=== PATIENT | male | born 1975 | race Caucasian/White ===

== ENCOUNTER 2020-01-20 12:36 | Inpatient (IN) | payer OTHER ==
[2020-01-20] MEDS ORDERED: SODIUM CHLORIDE 0.9% 500 ML 500 ML IV STA (12:55)
[2020-01-20] MEDS ORDERED: VANCOMYCIN IV PER PHARMACY 1 EACH MISC MISCELLANE PRN (12:56)
--- NOTE | 2020-01-20 13:12 | ED ---
General Adult HPI - General Chief complaint: Extremity Problem,Nontraumatic Stated complaint: head/facial swelling Time Seen by Provider: 01/20/20 12:47 Source: patient, RN notes reviewed, old records reviewed Mode of arrival: ambulatory Limitations: no limitations - History of Present Illness Initial comments: 44-year-old male presenting for evaluation of pain swelling and drainage from his forehead and scalp. Patient has had multiple MRSA scalp abscesses in the past. He states over the past several days he's had increased pain and swelling on his forehead and scalp. No fever. He is a type I diabetic. He was placed on oral vancomycin by his primary care physician. he was not placed on any additional antibiotics. the abscess has been freely draining. - Related Data Home Medications Medication Instructions Recorded Confirmed Celecoxib [CeleBREX] 100 mg PO BID 01/20/20 01/20/20 DULoxetine HCL [Cymbalta] 30 mg PO BID 01/20/20 01/20/20 Dicyclomine [Bentyl] 40 mg PO QID 01/20/20 01/20/20 Hyoscyamine Sulfate [Levsin] 0.25 mg PO QID 01/20/20 01/20/20 Insulin Aspart (For Pump) [NovoLOG 0.01 unit SQ-PUMP CONTINUOUS 01/20/20 01/20/20 (For Pump)] L.acidoph,Paracasei, B.lactis 1 cap PO DAILY 01/20/20 01/20/20 [Probiotic] Vancomycin 125 mg PO QID 01/20/20 01/20/20 Allergies Allergy/AdvReac Type Severity Reaction Status Date / Time insulin glargine Allergy Rash/Hives Verified 01/20/20 14:04 [From Lantus U-100 Insulin] Review of Systems ROS Statement: Those systems with pertinent positive or pertinent negative responses have been documented in the HPI. ROS Other: All systems not noted in ROS Statement are negative. Past Medical History Additional Past Medical History / Comment(s): sores cut out with mrsa. History of Any Multi-Drug Resistant Organisms: C-DIFF, MRSA Additional Past Surgical History / Comment(s): nephrotomy tube, stent. Past Psychological History: No Psychological Hx Reported Smoking Status: Never smoker Past Alcohol Use History: None Reported Past Drug Use History: None Reported General Exam Limitations: no limitations General appearance: alert, in no apparent distress Head exam: Present: atraumatic, normocephalic, other (forehead abscess which is draining. Material there is surrounding cellulitis measuring approximately 8 or 9 cm in length, between 2 and 3 cm wide.) Eye exam: Present: normal appearance, PERRL Neck exam: Present: normal inspection. Absent: tenderness, meningismus Respiratory exam: Present: normal lung sounds bilaterally. Absent: respiratory distress, wheezes Cardiovascular Exam: Present: regular rate, normal rhythm GI/Abdominal exam: Present: soft. Absent: distended, tenderness, guarding Extremities exam: Present: normal inspection, normal capillary refill. Absent: pedal edema Neurological exam: Present: alert, oriented X3, CN II-XII intact. Absent: motor sensory deficit Psychiatric exam: Present: normal affect, normal mood Course Vital Signs 01/20/20 12:40 Temperature 98.8 F Pulse Rate 118 H Respiratory 18 Rate Blood Pressure 119/79 O2 Sat by Pulse 98 Oximetry Medical Decision Making - Medical Decision Making 44-year-old male with forehead abscess which is freely draining.ound culture, blood cultures are pending, patient is initiated on IV vancomycin as well as ceftriaxone. IV fluid initiated. As well as pain control. Given that this is on his face and scalp he will be admitted for continuous IV antibiotics. Abscess is draining at this time. Case discussed with Dr. Rodriguez who will admit - Lab Data Result diagrams: 01/20/20 12:59 01/20/20 12:59 Lab Results 01/20/20 01/20/20 01/20/20 Range/Units 12:59 12:59 12:59 WBC 7.9 (3.8-10.6) k/uL RBC 3.83 L (4.30-5.90) m/uL Hgb 12.1 L (13.0-17.5) gm/dL Hct 38.9 L (39.0-53.0) % MCV 101.4 H (80.0-100.0) fL MCH 31.7 (25.0-35.0) pg MCHC 31.2 (31.0-37.0) g/dL RDW 14.5 (11.5-15.5) % Plt Count 349 (150-450) k/uL Neutrophils % 86 % Lymphocytes % 4 % Monocytes % 5 % Eosinophils % 2 % Basophils % 1 % Neutrophils # 6.8 (1.3-7.7) k/uL Lymphocytes # 0.3 L (1.0-4.8) k/uL Monocytes # 0.4 (0-1.0) k/uL Eosinophils # 0.2 (0-0.7) k/uL Basophils # 0.1 (0-0.2) k/uL Hypochromasia Slight Macrocytosis Slight Sodium 136 L (137-145) mmol/L Potassium 4.7 (3.5-5.1) mmol/L Chloride 107 (98-107) mmol/L Carbon Dioxide 24 (22-30) mmol/L Anion Gap 5 mmol/L BUN 19 (9-20) mg/dL Creatinine 1.56 H (0.66-1.25) mg/dL Est GFR (CKD-EPI)AfAm 62 (>60 ml/min/1.73 sqM) Est GFR (CKD-EPI)NonAf 54 (>60 ml/min/1.73 sqM) Glucose 282 H (74-99) mg/dL Plasma Lactic Acid Cristóbal 0.9 (0.7-2.0) mmol/L Calcium 8.7 (8.4-10.2) mg/dL Total Bilirubin 0.4 (0.2-1.3) mg/dL AST 46 (17-59) U/L ALT 27 (4-49) U/L Alkaline Phosphatase 76 (38-126) U/L Total Protein 5.6 L (6.3-8.2) g/dL Albumin 2.9 L (3.5-5.0) g/dL Disposition Clinical Impression: Cellulitis, Facial abscess Disposition: ADMITTED IP TO THIS HOSP Condition: Stable Is patient prescribed a controlled substance at d/c from ED?: No Referrals: Antolin Martin MD [Primary Care Provider] - 1-2 days Decision to Admit Reason: Admit from EC Decision Date: 01/20/20 Decision Time: 14:45
[2020-01-20] MEDS ORDERED: VANCOMYCIN 1,750 MG in SODIUM CHLORIDE 0.9% 500 ML 500 ML IVPB ONE (13:15)
[2020-01-20 13:19] LABS: Basophils # (A) 0.1 k/uL (0-0.2); Basophils % (A) 1 %; Eosinophils # (A) 0.2 k/uL (0-0.7); Eosinophils % (A) 2 %; HCT 38.9 % (39.0-53.0); HGB 12.1 gm/dL (13.0-17.5); Hypochromasia Slight; Lymphocytes # (A) 0.3 k/uL (1.0-4.8); Lymphocytes % (A) 4 %; MCH 31.7 pg (25.0-35.0); MCHC 31.2 g/dL (31.0-37.0); MCV 101.4 fL (80.0-100.0); Macrocytosis Slight; Mean Platelet Volume 7.6; Monocytes # (A) 0.4 k/uL (0-1.0); Monocytes % (A) 5 %; Neutrophils # (A) 6.8 k/uL (1.3-7.7); Neutrophils % (A) 86 %; Platelet Count 349 k/uL (150-450); RBC 3.83 m/uL (4.30-5.90); RDW 14.5 % (11.5-15.5); WBC 7.9 k/uL (3.8-10.6)
[2020-01-20 13:29] LABS: Albumin 2.9 g/dL (3.5-5.0); Calcium 8.7 mg/dL (8.4-10.2); Potassium 4.7 mmol/L (3.5-5.1); Total Bilirubin 0.4 mg/dL (0.2-1.3); Total Protein 5.6 g/dL (6.3-8.2)
[2020-01-20] MEDS ORDERED: HYDROcodone/APAP 5-325MG 1 EACH TAB PO STA (14:00)
[2020-01-20] MEDS ORDERED: HYDROcodone/APAP 5-325MG 1 EACH TAB PO PRN (14:43)
[2020-01-20] MEDS ORDERED: NALOXONE 0.4 MG/ML 1 ML VIAL IV PRN (14:43)
[2020-01-20] MEDS ORDERED: Insulin Aspart (For Pump) 100 UNIT/ML VIAL SQ-PUMP SCH (14:45)
[2020-01-20] MEDS: MORPHINE SULFATE 4 MG/ML SYRINGE IVP PRN ×2 (15:31→19:20)
[2020-01-20] MEDS: SODIUM CHLORIDE 0.9% 1,000 ML IV SCH ×3 (15:32→22:55)
[2020-01-20] MEDS ORDERED: INSULIN ASPART (NovoLOG) 100 UNIT/ML VIAL SQ PRN (17:22)
[2020-01-20] MEDS ORDERED: INSULIN PUMP BASAL RATES 1 EACH MISC MISCELLANE SCH (17:30)
[2020-01-20] MEDS: INSULIN PUMP MEAL BOLUS 1 UNIT MISC MISCELLANE SCH ×2 (17:48→20:41)
[2020-01-20] MEDS: DULoxetine HCL 30 MG CAPSULE.DR PO SCH (19:19)
[2020-01-20] MEDS: HYOSCYAMINE SULFATE 0.125 MG TAB PO SCH (19:19)
[2020-01-20] MEDS: DICYCLOMINE 20 MG TAB PO SCH (19:20)
[2020-01-20 20:12] LABS: Glucose,Whole Blood 179 mg/dL (75-99)
[2020-01-20] MEDS: INSULIN PUMP BASAL RATES 1 EACH MISC MISCELLANE SCH (20:41)
--- NOTE | 2020-01-20 21:49 | P.HPIM ---
History of Present Illness H&P Date: 01/20/20 Chief Complaint: Scalp and facial abscess History of presenting complaint: This is a pleasant 44-year-old patient of Dr. gutierrez from [place]. Chronic stable medical conditions include type I diabetic. Patient has insulin pump. Rather brittle., Anxiety for which is on Cymbalta, J-pouch polyps for 2 takes Celebrex, abdominal cramping. Patient through the summer's been having episodes of facial abscess suspect in the facial head area including the maldonado. Had gone to see his family doctor. Several of these were I&D. Received antibiotics and local treatment which improved. Also a lot of having C. diff that was treated with oral vancomycin. Again patient started off with a lesion on the left cheek and the scalp area. Progress to get worse. It is draining. Denies any fever and chills. Appetite is fair. 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 diff, hemorrhage and adenoma polyposis, large colon removed due to polyps. 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 Employed Physical examination: VITAL SIGNS: 98.8, 118, 18, 119/79, 98% room air GENERAL: BMI 26.6, sitting up, not in distress. EYES: Pupils equal. Conjunctiva normal. HEENT: Patient has an area of large boil on the forehead at the hairline which is draining, 1 well-healing on the left face and the jawline l. NECK: JVD not raised; masses not palpable. HEART: First and second heart sounds are normal; no edema. LUNGS: Respiratory rate normal; clear to auscultation. ABDOMEN: Soft, nontender, liver spleen not palpable, no masses palpable. PSYCH: Alert and oriented x3; mood and affect normal. NEUROLOGICAL: Cranial nerves grossly intact; no facial asymmetry, power and sensation grossly intact. LYMPHATICS: No lymph nodes palpable in the axilla and neck INVESTIGATIONS, reviewed in the clinical context: White count 7.9 hemoglobin 12.1 platelets 349 potassium 4.7 creatinine 1.56 Assessment: -Recurrent facial abscess boils, especially along the hairline, folliculitis with a prior history of MRSA. We will check patient's immunoglobulins for immunosuppression. -Diabetes mellitus type 1 with insulin pump, brittle -Chronic kidney disease stage III suspect diabetic nephropathy -Hypoalbuminemia likely from chronic kidney disease -Macrocytic anemia Plan: Patient started on vancomycin the ER. Given the renal function will global climate change researcher to daptomycin. Nephrology will be consulted. Check renal function and renal ultrasound. Cultures be sent for Gram stain. Recheck immunoglobin profile. Home medications to be resumed. Lovenox for DVT prophylaxis. Past Medical History Past Medical History: Diabetes Mellitus Additional Past Medical History / Comment(s): scalp/forehead/jawline abscesses since summer 2019; type 1 DM; cdiff 3x since May 2019; gardners syndrome (scar tissue tumors); dilated kidneys; History of Any Multi-Drug Resistant Organisms: C-DIFF, MRSA Date of last positivie culture/infection: 12/12/2019 MDRO Source:: mrsa 12/12/19; cdiff 10/2019 Additional Past Surgical History / Comment(s): percutaneous nephrotomy tube right; ureter stent left; FAP- large colon removed r/t polyps 1996; yearly egd/colonoscopies; multiple sxs to remove desmoid tumors; Past Anesthesia/Blood Transfusion Reactions: No Reported Reaction Past Psychological History: Anxiety, Depression Smoking Status: Never smoker Past Alcohol Use History: None Reported Past Drug Use History: None Reported - Past Family History Sister(s) Additional Family Medical History / Comment(s): FAP Son(s) Additional Family Medical History / Comment(s): FAP Father Additional Family Medical History / Comment(s): FAP, from car accident Medications and Allergies Home Medications Medication Instructions Recorded Confirmed Type Celecoxib [CeleBREX] 100 mg PO BID 01/20/20 01/20/20 History DULoxetine HCL [Cymbalta] 30 mg PO BID 01/20/20 01/20/20 History Dicyclomine [Bentyl] 40 mg PO QID 01/20/20 01/20/20 History Hyoscyamine Sulfate [Levsin] 0.25 mg PO QID 01/20/20 01/20/20 History Insulin Aspart (For Pump) [NovoLOG 0.01 unit SQ-PUMP CONTINUOUS 01/20/20 01/20/20 History (For Pump)] L.acidoph,Paracasei, B.lactis 1 cap PO DAILY 01/20/20 01/20/20 History [Probiotic] Vancomycin 125 mg PO QID 01/20/20 01/20/20 History Allergies Allergy/AdvReac Type Severity Reaction Status Date / Time insulin glargine Allergy Rash/Hives Verified 01/20/20 14:04 [From Lantus U-100 Insulin] Physical Exam Vitals: Vital Signs Temp Pulse Resp BP Pulse Ox 01/20/20 17:38 18 01/20/20 15:21 97 F L 110 H 18 125/85 100 01/20/20 12:40 98.8 F 118 H 18 119/79 98 Intake and Output 01/20/20 01/20/20 01/20/20 06:59 14:59 22:59 Other: Voiding Method Ileal Conduit (Right) Weight 81.647 kg 81.647 kg Results CBC & Chem 7: 01/20/20 12:59 01/20/20 12:59 Labs: Abnormal Lab Results - Last 24 Hours (Table) 01/20/20 01/20/20 01/20/20 Range/Units 12:59 12:59 20:11 RBC 3.83 L (4.30-5.90) m/uL Hgb 12.1 L (13.0-17.5) gm/dL Hct 38.9 L (39.0-53.0) % MCV 101.4 H (80.0-100.0) fL Lymphocytes # 0.3 L (1.0-4.8) k/uL Sodium 136 L (137-145) mmol/L Creatinine 1.56 H (0.66-1.25) mg/dL Glucose 282 H (74-99) mg/dL POC Glucose (mg/dL) 179 H (75-99) mg/dL Total Protein 5.6 L (6.3-8.2) g/dL Albumin 2.9 L (3.5-5.0) g/dL Microbiology - Last 24 Hours (Table) 01/20/20 12:59 Wound Culture - Preliminary Face Thrombosis Risk Factor Assmnt - Choose All That Apply Each Factor Represents 1 point: Age 41-60 years Thrombosis Risk Factor Assessment Total Risk Factor Score: 1 Thrombosis Risk Factor Assessment Level: Low Risk
[2020-01-20] MEDS: ENOXAPARIN 40 MG/0.4 ML SYRINGE SQ SCH (22:56)
[2020-01-21] MEDS ORDERED: VANCOMYCIN 1,500 MG in SODIUM CHLORIDE 0.9% 250 ML IVPB SCH ×2
[2020-01-21] MEDS: MORPHINE SULFATE 4 MG/ML SYRINGE IVP PRN ×5 (01:02→20:37)
[2020-01-21] MEDS: DICYCLOMINE 20 MG TAB PO SCH ×4 (06:06→20:36)
[2020-01-21] MEDS: HYOSCYAMINE SULFATE 0.125 MG TAB PO SCH ×4 (06:06→20:36)
[2020-01-21] MEDS: DULoxetine HCL 30 MG CAPSULE.DR PO SCH ×2 (06:06→20:36)
[2020-01-21] MEDS: SODIUM CHLORIDE 0.9% 1,000 ML IV SCH ×3 (06:12→21:41)
[2020-01-21 06:25] LABS: Appearance,Urine Cloudy (Clear); Bacteria,Urine Many /hpf; Bilirubin,Urine Negative (Negative); Blood,Urine Small (Negative); Budding Yeast,Urine Few /hpf; Color,Urine Light Yellow; Glucose,Urine (UA) Negative (Negative); Ketones,Urine Negative (Negative); Leukocyte Esterase,Urine Large (Negative); Mucus,Urine Rare /hpf; Nitrite,Urine Positive (Negative); PH, Urine 5.5 (5.0-8.0); Protein,Urine Trace (Negative); RBC,Urine 14 /hpf (0-5); Specific Gravity,Urine 1.012 (1.001-1.035); Urobilinogen,Urine <2.0 mg/dL (<2.0); WBC,Urine >182 /hpf (0-5)
[2020-01-21 07:10] LABS: Glucose,Whole Blood 158 mg/dL (75-99)
--- NOTE | 2020-01-21 08:07 | US ---
EXAMINATION TYPE: US kidneys/renal and bladder DATE OF EXAM: 01/21/2020 COMPARISON: NONE CLINICAL HISTORY: assess for CK D. 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 EXAM MEASUREMENTS: Right Kidney: 9.7 x 4.7 x 4.0 cm Left Kidney: 11.1 x 5.5 x 4.2 cm Right Kidney: Lobulated Left Kidney: Lobulated ill defined borders Bladder: Cather in place Bilateral Jets seen: No Lobulated contour to both kidneys more prominent on the left. No hydronephrosis or concerning solid o r cystic renal mass in either kidney. Renal size is within normal limits bilaterally. Ellis catheter in place makes evaluation of bladder suboptimal. IMPRESSION: No hydronephrosis noted bilaterally.
[2020-01-21] MEDS: INSULIN PUMP MEAL BOLUS 1 UNIT MISC MISCELLANE SCH ×4 (08:41→20:39)
[2020-01-21] MEDS: INSULIN PUMP BASAL RATES 1 EACH MISC MISCELLANE SCH ×4 (08:41→20:39)
[2020-01-21] MEDS: ENOXAPARIN 40 MG/0.4 ML SYRINGE SQ SCH (08:42)
[2020-01-21] MEDS: LACTOBACILLUS ACIDOPH & BULGAR 1 EACH PACKET PO SCH (08:42)
[2020-01-21] MEDS: DAPTOmycin 500 MG in SODIUM CHLORIDE 0.9% 50 ML IVPB SCH (08:42)
[2020-01-21] MEDS ORDERED: MELOXICAM 7.5 MG TAB PO SCH (09:00)
--- NOTE | 2020-01-21 10:37 | P.NPCON ---
History of Present Illness - Reason for Consult chronic renal failure - History of Present Illness Reason for consultation: Chronic kidney disease History of present illness: Patient is a 44-year-old male seen in renal consultation for chronic kidney disease. Patient states he has chronic kidney disease stage III with baseline creatinine near 1.5. Patient has history of FAP and is status post colectomy as well as large intestine resection. Patient states he developed desmoid tumor and underwent resection off one of them. The other one could not be removed. He developed obstructive uropathy and had bilateral nephrostomy tubes placed for about one year in 2004. He subsequently had the nephrostomy tubes removed and then had bilateral stents placed. Patient again developed obstruction from the desmoid tumor and underwent placement of nephrostomy tubes and subsequently left ureteral stent. Patient states the right ureteral stent could not be placed. He follows with urology and nephrology out of [facility]. Patient presented to the hospital with wound on his forehead. Patient states he first noticed it about 2 weeks ago and also had it drained at his primary care physici an's office. He was taking oral vancomycin. However he states that he noticed worsening swelling around his forehead and came to the hospital. Patient states he's had other skin lesions in the past. Cultures positive for MRSA. Patient is not able to tolerate antibiotics as he's had multiple episodes of C. diff. He does admit to taking Tylenol as well as Aleve for the last few days. No chest pain or shortness of breath. No edema. No vomiting or diarrhea. Oral intake is good. No family history of renal disease. He does have long-standing history of diabetes mellitus. Vital signs are stable. General: The patient appeared well nourished and normally developed. HEENT: Head exam is unremarkable. Neck is without jugular venous distension. LUNGS: Breath sounds decreased. HEART: Rate and Rhythm are regular. ABDOMEN: Soft, nontender. EXTREMITITES: No clubbing, cyanosis, or edema. Past Medical History Past Medical History: Diabetes Mellitus Additional Past Medical History / Comment(s): scalp/forehead/jawline abscesses since summer 2019; type 1 DM; cdiff 3x since May 2019; gardners syndrome (scar tissue tumors); dilated kidneys; History of Any Multi-Drug Resistant Organisms: C-DIFF, MRSA Date of last positivie culture/infection: 12/12/2019 MDRO Source:: mrsa 12/12/19; cdiff 10/2019 Additional Past Surgical History / Comment(s): percutaneous nephrotomy tube right; ureter stent left; FAP- large colon removed r/t polyps 1996; yearly egd/colonoscopies; multiple sxs to remove desmoid tumors; Past Anesthesia/Blood Transfusion Reactions: No Reported Reaction Past Psychological History: Anxiety, Depression Smoking Status: Never smoker Past Alcohol Use History: None Reported Past Drug Use History: None Reported - Past Family History Sister(s) Additional Family Medical History / Comment(s): FAP Son(s) Additional Family Medical History / Comment(s): FAP Father Additional Family Medical History / Comment(s): FAP, from car accident Medications and Allergies Home Medications Medication Instructions Recorded Confirmed Type Celecoxib [CeleBREX] 100 mg PO BID 01/20/20 01/20/20 History DULoxetine HCL [Cymbalta] 30 mg PO BID 01/20/20 01/20/20 History Dicyclomine [Bentyl] 40 mg PO QID 01/20/20 01/20/20 History Hyoscyamine Sulfate [Levsin] 0.25 mg PO QID 01/20/20 01/20/20 History Insulin Aspart (For Pump) [NovoLOG 0.01 unit SQ-PUMP CONTINUOUS 01/20/20 01/20/20 History (For Pump)] L.acidoph,Paracasei, B.lactis 1 cap PO DAILY 01/20/20 01/20/20 History [Probiotic] Vancomycin 125 mg PO QID 01/20/20 01/20/20 History Allergies Allergy/AdvReac Type Severity Reaction Status Date / Time insulin glargine Allergy Rash/Hives Verified 01/20/20 14:04 [From Lantus U-100 Insulin] Physical Exam Vitals: Vital Signs Temp Pulse Pulse Resp BP BP Pulse Ox 01/21/20 05:00 97.8 F 81 16 111/71 98 01/20/20 21:00 98.0 F 97 16 118/74 99 01/20/20 17:38 18 01/20/20 15:21 97 F L 110 H 18 125/85 100 01/20/20 12:40 98.8 F 118 H 18 119/79 98 Intake and Output 01/20/20 01/21/20 01/21/20 22:59 06:59 14:59 Intake Total 1110 590 Balance 1110 590 Intake: Intake, IV Titration 520 Amount Sodium Chloride 0.9% 1, 520 000 ml @ 130 mls/hr IV . Q7H42M [facility] Rx#:[id number] Oral 590 590 Other: Voiding Method Ileal Conduit (Right) Ileal Conduit (Right) # Voids 1 2 Weight 81.647 kg Results - Lab Results Most recent lab results Calcium 8.7 mg/dL (8.4-10.2) 01/20/20 12:59 01/20/20 12:59 01/20/20 12:59 Assessment and Plan Plan: Assessment: 1. Chronic kidney disease stage III secondary to obstructive uropathy. Baseline creatinine near 1.5 at the patient. He follows at [facility]. 2. 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 Ultrasound this admission revealed no evidence of hydronephrosis. 3. Diabetes mellitus. 4. MRSA wound on the forehead maintained on antibiotics. 5. History of recurrent C. diff. No diarrhea at this time. 6. Pyuria. Asymptomatic. He did receive a dose of Rocephin on admission. 7. History of FAP status post colectomy. Plan: Decrease normal saline to 50 mL an hour. Can likely Hep-Lock tomorrow. Avoid nephrotoxins. I advised the patient to avoid nonsteroidals on a regular basis. Check urine culture. He will need to follow up with urology as well as nephrology at [facility] upon discharge. Thank you for the consultation. I will continue to follow the patient with you during his hospital stay.
[2020-01-21 10:59] LABS: African American GFR (CKD) 78 (>60 ml/min/1.73 sqM); Anion Gap 2 mmol/L; Blood Urea Nitrogen 15 mg/dL (9-20); Calcium 7.5 mg/dL (8.4-10.2); Carbon Dioxide 22 mmol/L (22-30); Chloride 112 mmol/L (98-107); Glucose 150 mg/dL (74-99); Non-African American GFR(CKD) 67 (>60 ml/min/1.73 sqM); Sodium 136 mmol/L (137-145)
[2020-01-21 11:10] LABS: Glucose,Whole Blood 68 mg/dL (75-99)
[2020-01-21] MEDS ORDERED: INSPUCOR MISCELLANE PRN (11:25)
[2020-01-21] MEDS ORDERED: INSULIN PUMP TARGET GLUCOSE 1 EACH MISC MISCELLANE PRN (11:25)
[2020-01-21] MEDS ORDERED: INSULIN PUMP ACTIVE INSULIN 1 EACH MISC MISCELLANE PRN (11:25)
[2020-01-21 11:28] LABS: Glucose,Whole Blood 59 mg/dL (75-99)
[2020-01-21 12:00] LABS: Glucose,Whole Blood 119 mg/dL (75-99)
[2020-01-21 13:27] LABS: Hemoglobin A1C 6.3 % (4.0-6.0)
[2020-01-21 17:16] LABS: Glucose,Whole Blood 201 mg/dL (75-99)
[2020-01-21 20:24] LABS: Glucose,Whole Blood 161 mg/dL (75-99)
--- NOTE | 2020-01-21 20:34 | P.PN ---
Progress Note - Text Progress Note Date: 01/21/20 Chief Complaint: Scalp and facial abscess History of presenting complaint: This is a pleasant 44-year-old patient of Dr. gutierrez from [place]. Chronic stable medical conditions include type I diabetic. Patient has insulin pump. Rather brittle., Anxiety for which is on Cymbalta, J-pouch polyps for 2 takes Celebrex, abdominal cramping. Patient through the summer's been having episodes of facial abscess suspect in the facial head area including the maldonado. Had gone to see his family doctor. Several of these were I&D. Received antibiotics and local treatment which improved. Also a lot of having C. diff that was treated with oral vancomycin. Again patient started off with a lesion on the left cheek and the scalp area. Progress to get worse. It is draining. Denies any fever and chills. Appetite is fair. Today-sitting up. No fever no chills. The abscess on the phone it is draining a bit. Cultures are coming back showing MRSA. Appetite fair Review of systems: Was done for constitutional, cardiovascular, GI, pulmonary. relevant finding as above Active Medications Hydrocodone Bitart/Acetaminophen (Hydrocodone/Apap 5-325mg 1 Each Tab) 1 each PO Q6HR PRN PRN Reason: Moderate Pain Dicyclomine HCl (Dicyclomine 20 Mg Tab) 40 mg PO ACHS [facility] Last Admin: 01/21/20 17:23 Dose: 40 mg Documented by: Duloxetine HCl (Duloxetine Hcl 30 Mg Capsule.) 30 mg PO BID [facility] Last Admin: 01/21/20 06:06 Dose: 30 mg Documented by: Enoxaparin Sodium (Enoxaparin 40 Mg/0.4 Ml Syringe) 40 mg SQ DAILY [facility] Last Admin: 01/21/20 08:42 Dose: 40 mg Documented by: Hyoscyamine (Hyoscyamine Sulfate 0.125 Mg Tab) 0.25 mg PO QID [facility] Last Admin: 01/21/20 17:22 Dose: 0.25 mg Documented by: Sodium Chloride (Saline 0.9%) 1,000 mls @ 50 mls/hr IV .Q20H [facility] Last Admin: 01/21/20 06:12 Dose: 130 mls/hr Documented by: Daptomycin 500 mg/ Sodium (Chloride) 50 mls @ 100 mls/hr IVPB Q24H [facility]; Protocol Last Admin: 01/21/20 08:42 Dose: 100 mls/hr Documented by: Insulin Aspart (Insulin Aspart (Novolog) 100 Unit/Ml Vial) 0 unit SQ DAILY PRN PRN Reason: Insulin Pump Replacement Lactobacillus Acidoph/Bulgaricus (Lactobacillus Acidoph & Bulgar 1 Each Packet) 1 each PO DAILY [facility] Last Admin: 01/21/20 08:42 Dose: 1 each Documented by: Miscellaneous Information (Insulin Pump Meal Bolus 1 Unit Misc) 0 unit MISCELLANE ACHS [facility]; Protocol Last Admin: 01/21/20 17:24 Dose: 1.5 unit Documented by: Miscellaneous Information (Insulin Pump Basal Rates 1 Each Misc) 1.5 each MISCELLANE ACHS [facility]; Protocol Last Admin: 01/21/20 17:24 Dose: 1.5 each Documented by: Miscellaneous Information (Insulin Pump Correction Bolus 1 Unit Misc) 0 unit MISCELLANE ACHS PRN; Protocol PRN Reason: Blood Sugar - High Miscellaneous Information (Insulin Pump Active Insulin 1 Each Misc) 1 each MISCELLANE ACHS PRN; Protocol PRN Reason: Blood Sugar - High Miscellaneous Information (Insulin Pump Target Glucose 1 Each Misc) 1 each MISCELLANE ACHS PRN; Protocol PRN Reason: Blood Sugar - High Morphine Sulfate (Morphine Sulfate 4 Mg/Ml Syringe) 4 mg IVP Q3HR PRN PRN Reason: Pain Last Admin: 01/21/20 17:28 Dose: 4 mg Documented by: Naloxone HCl (Naloxone 0.4 Mg/Ml 1 Ml Vial) 0.2 mg IV Q2M PRN PRN Reason: Opioid Reversal Physical examination: VITAL SIGNS: 97.6, 93, 17, 101 8/69, 98% room air GENERAL: sitting up, comfortable EYES: Pupils equal. Conjunctiva normal. HEENT: Patient has an area of large boil on the forehead at the hairline which is draining, 1 well-healing on the left face and the jawline l. NECK: JVD not raised; masses not palpable. HEART: First and second heart sounds are normal; no edema. LUNGS: Respiratory rate normal; clear to auscultation. ABDOMEN: Soft, nontender, liver spleen not palpable, no masses palpable. PSYCH: Alert and oriented x3; mood and affect normal. INVESTIGATIONS, reviewed in the clinical context: Accu-Cheks 68, 59, 119 creatinine 1.3 White count 7.9 hemoglobin 12.1 platelets 349 potassium 4.7 creatinine 1.56 Assessment: -Recurrent facial abscess boils, especially along the hairline, folliculitis with a prior history of MRSA. We will check patient's immunoglobulins for immunosuppression. Prelim cultures coming back showing MRSA. -Diabetes mellitus type 1 with insulin pump, brittle, uncontrolled with hypoglycemia -Chronic kidney disease stage III suspect diabetic nephropathy -Hypoalbuminemia likely from chronic kidney disease -Macrocytic anemia Plan: Spoke to the skilled nursing case manager about a prescription for Zyvox. Wishes co-pay and not having any prescription coverage amount is coming to $3000. We will try a prescription of doxycycline. Consult surgery for possible I&D on the forehead abscess. On IV daptomycin
[2020-01-22] MEDS: MORPHINE SULFATE 4 MG/ML SYRINGE IVP PRN ×4 (03:06→22:20)
[2020-01-22] MEDS: SODIUM CHLORIDE 0.9% 1,000 ML IV SCH ×2 (05:11→13:42)
[2020-01-22] MEDS: DICYCLOMINE 20 MG TAB PO SCH ×4 (06:13→21:30)
[2020-01-22] MEDS: DULoxetine HCL 30 MG CAPSULE.DR PO SCH ×2 (06:14→21:30)
[2020-01-22] MEDS: HYOSCYAMINE SULFATE 0.125 MG TAB PO SCH ×4 (06:14→21:30)
[2020-01-22 07:50] LABS: Glucose,Whole Blood 153 mg/dL (75-99)
[2020-01-22] MEDS: INSULIN PUMP BASAL RATES 1 EACH MISC MISCELLANE SCH ×4 (08:24→21:30)
[2020-01-22] MEDS: INSULIN PUMP MEAL BOLUS 1 UNIT MISC MISCELLANE SCH ×4 (08:25→21:30)
[2020-01-22] MEDS: DAPTOmycin 500 MG in SODIUM CHLORIDE 0.9% 50 ML IVPB SCH (08:36)
[2020-01-22] MEDS: LACTOBACILLUS ACIDOPH & BULGAR 1 EACH PACKET PO SCH (08:37)
[2020-01-22] MEDS: ENOXAPARIN 40 MG/0.4 ML SYRINGE SQ SCH (08:37)
[2020-01-22 09:17] LABS: African American GFR (CKD) 85.3 (60.0-200.0); Anion Gap 5.3 mmol/L (4.00-12.00); BUN/Creat Ratio 9.17 Ratio (12.00-20.00); Calcium 7.8 mg/dL (8.7-10.3); Carbon Dioxide 23.7 mmol/L (21.6-31.8); Magnesium 1.8 mg/dL (1.5-2.4); Non-African American GFR(CKD) 73.6 (60.0-200.0); Potassium 4.2 mmol/L (3.5-5.5)
[2020-01-22 11:17] LABS: Glucose,Whole Blood 104 mg/dL (75-99)
--- NOTE | 2020-01-22 12:30 | P.GSCN ---
History of Present Illness Consult date: 01/22/20 History of present illness: CHIEF COMPLAINT: Forehead abscess HISTORY OF PRESENT ILLNESS: This is a 44-year-old male with a known history of multiple scalp abscesses with MRSA, Diabetes mellitus type 1, recurrent C. diff, chronic kidney disease stage III, desmoid tumor and prior Resection. Since May patient has had multiple facial abscesses on his and his scalp as well as in his maldonado. His PCP has been doing I and D's in the office and patient is been started on antibiotics. Patient had a abscess started on his forehead on January 10. He went into his PCP and had I&D completed he was started on oral vancomycin. However, patient's redness and swelling and drainage had increased from that site and therefore he came into the emergency room for further eval uation and treatment. Patient does report some pain and tenderness in the area. He also had facial swelling that is now improving with the IV antibiotics. He denies any fevers chills or sweats. Denies any nausea or vomiting. PAST MEDICAL HISTORY: See list. PAST SURGICAL HISTORY: See list. MEDICATIONS: See list. ALLERGIES: See list. SOCIAL HISTORY: No illicit drug use. REVIEW OF SYSTEMS: CONSTITUTIONAL: Denies fever or chills. HEENT: Denies blurred vision, vision changes, or eye pain. Denies hemoptysis CARDIOVASCULAR: Denies chest pain or pressure. RESPIRATORY: No shortness of breath. GASTROINTESTINAL: See HPI for pertinent findings HEMATOLOGIC: Denies bleeding disorders. GENITOURINARY: Denies any blood in urine or increased urinary frequency. SKIN: Denies pruitis. Denies rash. PHYSICAL EXAM: VITAL SIGNS: Reviewed GENERAL: Well-developed in no acute distress. HEENT: No sclera icterus. Extraocular movements grossly intact. Moist buccal mucosa. Head is atraumatic, normocephalic. No nasal drainage. Patient's for it has a 2 inch abscess. There is erythema around the area and some scabbing. ABDOMEN: Soft. Nondistended. nontender NEUROLOGIC: Alert and oriented. Cranial nerves II through XII grossly intact. LABORATORY DATA: WBC 7.9 A1c 6.3 Culture presumptive MRSA IMAGING: ASSESSMENT: 1. Abscess of the forehead secondary to sebaceous cyst status post bedside debridement by Dr. Hair 2. Prior history of multiple facial abscesses with MRSA requiring outpatient Antibiotic and I&D 3. Diabetes mellitus type 1 PLAN: -Continue antibiotics, daptomycin per medicine -Continue regular diet Thank you for this consultation Physician Media Sales Representative note has been reviewed by physician. Signing provider agrees with the documented findings, assessment, and plan of care. Past Medical History Past Medical History: Diabetes Mellitus Additional Past Medical History / Comment(s): scalp/forehead/jawline abscesses since summer 2019; type 1 DM; cdiff 3x since May 2019; gardners syndrome (scar tissue tumors); dilated kidneys; History of Any Multi-Drug Resistant Organisms: C-DIFF, MRSA Year Discovered:: 12/12/2019 MDRO Source:: mrsa 12/12/19; cdiff 10/2019 Additional Past Surgical History / Comment(s): percutaneous nephrotomy tube right; ureter stent left; FAP- large colon removed r/t polyps 1996; yearly egd/colonoscopies; multiple sxs to remove desmoid tumors; Past Anesthesia/Blood Transfusion Reactions: No Reported Reaction Past Psychological History: Anxiety, Depression Smoking Status: Never smoker Past Alcohol Use History: None Reported Past Drug Use History: None Reported - Past Family History Sister(s) Additional Family Medical History / Comment(s): FAP Son(s) Additional Family Medical History / Comment(s): FAP Father Additional Family Medical History / Comment(s): FAP, from car accident Medications and Allergies Home Medications Medication Instructions Recorded Confirmed Type Celecoxib [CeleBREX] 100 mg PO BID 01/20/20 01/20/20 History DULoxetine HCL [Cymbalta] 30 mg PO BID 01/20/20 01/20/20 History Dicyclomine [Bentyl] 40 mg PO QID 01/20/20 01/20/20 History Hyoscyamine Sulfate [Levsin] 0.25 mg PO QID 01/20/20 01/20/20 History Insulin Aspart (For Pump) [NovoLOG 0.01 unit SQ-PUMP CONTINUOUS 01/20/20 01/20/20 History (For Pump)] L.acidoph,Paracasei, B.lactis 1 cap PO DAILY 01/20/20 01/20/20 History [Probiotic] Vancomycin 125 mg PO QID 01/20/20 01/20/20 History Allergies Allergy/AdvReac Type Severity Reaction Status Date / Time insulin glargine Allergy Rash/Hives Verified 01/20/20 14:04 [From Lantus U-100 Insulin] Surgical - Exam Vital Signs Temp Pulse Resp BP Pulse Ox 98.8 F 118 H 18 119/79 98 01/20/20 12:40 01/20/20 12:40 01/20/20 12:40 01/20/20 12:40 01/20/20 12:40 Results - Labs 01/20/20 12:59 01/22/20 05:39 Abnormal Lab Results - Last 24 Hours (Table) 01/21/20 01/21/20 01/21/20 Range/Units 04:54 17:15 20:23 Chloride (96-109) mmol/L BUN/Creatinine Ratio (12.00-20.00) Ratio Glucose (70-110) mg/dL POC Glucose (mg/dL) 201 H 161 H (75-99) mg/dL Hemoglobin A1c 6.3 H (4.0-6.0) % Calcium (8.7-10.3) mg/dL 01/22/20 01/22/20 01/22/20 Range/Units 05:39 07:48 11:16 Chloride 110 H (96-109) mmol/L BUN/Creatinine Ratio 9.17 L (12.00-20.00) Ratio Glucose 242 H (70-110) mg/dL POC Glucose (mg/dL) 153 H 104 H (75-99) mg/dL Hemoglobin A1c (4.0-6.0) % Calcium 7.8 L (8.7-10.3) mg/dL Microbiology - Last 24 Hours (Table) 01/20/20 12:59 Gram Stain - Final Face Wound Culture - Final Methicillin resist S. aureus 01/21/20 20:00 Urine Culture - Preliminary Urine,Voided 01/20/20 12:59 Blood Culture - Preliminary Blood No Growth after 24 hours Diabetes panel 01/21/20 01/22/20 Range/Units 04:54 05:39 Sodium 139 (135-145) mmol/L Potassium 4.2 (3.5-5.5) mmol/L Chloride 110 H (96-109) mmol/L Carbon Dioxide 23.7 (21.6-31.8) mmol/L BUN 11.0 (9.0-27.0) mg/dL Creatinine 1.2 (0.6-1.5) mg/dL Glucose 242 H (70-110) mg/dL Hemoglobin A1c 6.3 H (4.0-6.0) % Calcium 7.8 L (8.7-10.3) mg/dL Calcium panel 01/22/20 Range/Units 05:39 Calcium 7.8 L (8.7-10.3) mg/dL Pituitary panel 01/22/20 Range/Units 05:39 Sodium 139 (135-145) mmol/L Potassium 4.2 (3.5-5.5) mmol/L Chloride 110 H (96-109) mmol/L Carbon Dioxide 23.7 (21.6-31.8) mmol/L BUN 11.0 (9.0-27.0) mg/dL Creatinine 1.2 (0.6-1.5) mg/dL Glucose 242 H (70-110) mg/dL Calcium 7.8 L (8.7-10.3) mg/dL Adrenal panel 01/22/20 Range/Units 05:39 Sodium 139 (135-145) mmol/L Potassium 4.2 (3.5-5.5) mmol/L Chloride 110 H (96-109) mmol/L Carbon Dioxide 23.7 (21.6-31.8) mmol/L BUN 11.0 (9.0-27.0) mg/dL Creatinine 1.2 (0.6-1.5) mg/dL Glucose 242 H (70-110) mg/dL Calcium 7.8 L (8.7-10.3) mg/dL
--- NOTE | 2020-01-22 13:01 | P.PN ---
Subjective Patient is seen in follow-up for chronic kidney disease. Renal function is at baseline. Good urine output. Currently on IV antibiotics for forehead infection. Hemodynamically stable. No active complaints. Vital signs are stable. General: The patient appeared well nourished and normally developed. HEENT: Forehead lesion noted. No active drainage. Dressing intact. LUNGS: Lungs are clear to auscultation and percussion. Breath sounds decreased. HEART: Rate and Rhythm are regular. First and second heart sounds normal. No murmurs, rubs or gallops. ABDOMEN: Soft, nontender. EXTREMITITES: No clubbing, cyanosis, or edema. Objective - Vital Signs Vital signs: Vital Signs Temp 98.1 F 01/22/20 11:40 Pulse 94 01/22/20 11:40 Resp 17 01/22/20 11:40 BP 121/77 01/22/20 11:40 Pulse Ox 97 01/22/20 11:40 Intake & Output 01/21/20 01/22/20 01/22/20 18:59 06:59 18:59 Intake Total 1680 Balance 1680 Intake: Intake, IV Titration 1680 Amount Sodium Chloride 0.9% 1, 1680 000 ml @ 130 mls/hr IV . Q7H42M [facility] Rx#:[id number] Other: Voiding Method Ileal Conduit (Right) Toilet Toilet Ileal Conduit (Right) Ileal Conduit (Right) # Voids 2 # Bowel Movements 1 - Labs CBC & Chem 7: 01/20/20 12:59 01/22/20 05:39 Labs: Abnormal Lab Results - Last 24 Hours (Table) 01/21/20 01/21/20 01/21/20 Range/Units 04:54 17:15 20:23 Chloride (96-109) mmol/L BUN/Creatinine Ratio (12.00-20.00) Ratio Glucose (70-110) mg/dL POC Glucose (mg/dL) 201 H 161 H (75-99) mg/dL Hemoglobin A1c 6.3 H (4.0-6.0) % Calcium (8.7-10.3) mg/dL 01/22/20 01/22/20 01/22/20 Range/Units 05:39 07:48 11:16 Chloride 110 H (96-109) mmol/L BUN/Creatinine Ratio 9.17 L (12.00-20.00) Ratio Glucose 242 H (70-110) mg/dL POC Glucose (mg/dL) 153 H 104 H (75-99) mg/dL Hemoglobin A1c (4.0-6.0) % Calcium 7.8 L (8.7-10.3) mg/dL Microbiology - Last 24 Hours (Table) 01/20/20 12:59 Gram Stain - Final Face Wound Culture - Final Methicillin resist S. aureus 01/21/20 20:00 Urine Culture - Preliminary Urine,Voided 01/20/20 12:59 Blood Culture - Preliminary Blood No Growth after 24 hours Assessment and Plan Plan: Assessment: 1. Chronic kidney disease stage III secondary to obstructive uropathy. Baseline creatinine near 1.5 per the patient. He follows at [facility]. GFR currently at baseline. 2. 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 Ultrasound this admission revealed no evidence of hydronephrosis. 3. Diabetes mellitus. 4. MRSA wound on the forehead maintained on antibiotics. 5. History of recurrent C. diff. No diarrhea at this time. 6. Pyuria. Asymptomatic. He did receive a dose of Rocephin on admission. 7. History of FAP status post colectomy. Plan: Hep-Lock IV fluids. Patient was advised to avoid nonsteroidals on a regular basis. Follow-up cultures. Add Rocephin 1 g every 24 hours for UTI. Follow up with urology as well as nephrology at [facility] upon discharge.
[2020-01-22 17:15] LABS: Glucose,Whole Blood 147 mg/dL (75-99)
[2020-01-22 20:29] LABS: Glucose,Whole Blood 95 mg/dL (75-99)
--- NOTE | 2020-01-22 21:55 | P.PN ---
Progress Note - Text Progress Note Date: 01/22/20 Chief Complaint: Scalp and facial abscess History of presenting complaint: This is a pleasant 44-year-old patient of Dr. gutierrez from [place]. Chronic stable medical conditions include type I diabetic. Patient has insulin pump. Rather brittle., Anxiety for which is on Cymbalta, J-pouch polyps for 2 takes Celebrex, abdominal cramping. Patient through the summer's been having episodes of facial abscess suspect in the facial head area including the maldonado. Had gone to see his family doctor. Several of these were I&D. Received antibiotics and local treatment which improved. Also a lot of having C. diff that was treated with oral vancomycin. Again patient started off with a lesion on the left cheek and the scalp area. Progress to get worse. It is draining. Denies any fever and chills. Appetite is fair. Today-surgery did squeeze the pus from the abscess before. July still I&D. Patient is having some itching. Eating okay Review of systems: Was done for constitutional, cardiovascular, GI, pulmonary. relevant finding as above Active Medications Hydrocodone Bitart/Acetaminophen (Hydrocodone/Apap 5-325mg 1 Each Tab) 1 each PO Q6HR PRN PRN Reason: Moderate Pain Dicyclomine HCl (Dicyclomine 20 Mg Tab) 40 mg PO ACHS [facility] Last Admin: 01/22/20 21:30 Dose: 40 mg Documented by: Duloxetine HCl (Duloxetine Hcl 30 Mg Capsule.) 30 mg PO BID [facility] Last Admin: 01/22/20 21:30 Dose: 30 mg Documented by: Enoxaparin Sodium (Enoxaparin 40 Mg/0.4 Ml Syringe) 40 mg SQ DAILY [facility] Last Admin: 01/22/20 08:37 Dose: 40 mg Documented by: Hyoscyamine (Hyoscyamine Sulfate 0.125 Mg Tab) 0.25 mg PO QID [facility] Last Admin: 01/22/20 21:30 Dose: 0.25 mg Documented by: Daptomycin 500 mg/ Sodium (Chloride) 50 mls @ 100 mls/hr IVPB Q24H [facility]; Protocol Last Admin: 01/22/20 08:36 Dose: 100 mls/hr Documented by: Ceftriaxone Sodium 1 gm/ (Sodium Chloride) 50 mls @ 100 mls/hr IVPB Q24HR [facility] Last Admin: 01/22/20 14:40 Dose: 100 mls/hr Documented by: Insulin Aspart (Insulin Aspart (Novolog) 100 Unit/Ml Vial) 0 unit SQ DAILY PRN PRN Reason: Insulin Pump Replacement Lactobacillus Acidoph/Bulgaricus (Lactobacillus Acidoph & Bulgar 1 Each Packet) 1 each PO DAILY [facility] Last Admin: 01/22/20 08:37 Dose: 1 each Documented by: Miscellaneous Information (Insulin Pump Meal Bolus 1 Unit Misc) 0 unit MISCELLANE ACHS [facility]; Protocol Last Admin: 01/22/20 21:30 Dose: Not Given Documented by: Miscellaneous Information (Insulin Pump Basal Rates 1 Each Misc) 1.5 each MISCELLANE ACHS [facility]ABETH; Protocol Last Admin: 01/22/20 21:30 Dose: 1.5 each Documented by: Miscellaneous Information (Insulin Pump Correction Bolus 1 Unit Misc) 0 unit MISCELLANE ACHS PRN; Protocol PRN Reason: Blood Sugar - High Miscellaneous Information (Insulin Pump Active Insulin 1 Each Misc) 1 each MISCELLANE ACHS PRN; Protocol PRN Reason: Blood Sugar - High Miscellaneous Information (Insulin Pump Target Glucose 1 Each Misc) 1 each MISCELLANE ACHS PRN; Protocol PRN Reason: Blood Sugar - High Morphine Sulfate (Morphine Sulfate 4 Mg/Ml Syringe) 4 mg IVP Q3HR PRN PRN Reason: Pain Last Admin: 01/22/20 18:02 Dose: 4 mg Documented by: Naloxone HCl (Naloxone 0.4 Mg/Ml 1 Ml Vial) 0.2 mg IV Q2M PRN PRN Reason: Opioid Reversal Physical examination: VITAL SIGNS: Afebrile, 94, 17, 121/77, 97% room air GENERAL: sitting up, comfortable EYES: Pupils equal. Conjunctiva normal. HEENT: Patient has an area of large boil on the forehead at the hairline which is draining, 1 well-healing on the left face and the left jawline NECK: JVD not raised; masses not palpable. HEART: First and second heart sounds are normal; no edema. LUNGS: Respiratory rate normal; clear to auscultation. ABDOMEN: Soft, nontender, liver spleen not palpable, no masses palpable. PSYCH: Alert and oriented x3; mood and affect normal. INVESTIGATIONS, reviewed in the clinical context: Potassium 4.2 creatinine 1.2 Accu-Cheks 68, 59, 119 creatinine 1.3 White count 7.9 hemoglobin 12.1 platelets 349 potassium 4.7 creatinine 1.56 Assessment: -Recurrent facial abscess boils, especially along the hairline, folliculitis with a prior history of MRSA. We will check patient's immunoglobulins for immunosuppression. Prelim cultures coming back showing MRSA. -Diabetes mellitus type 1 with insulin pump, brittle, uncontrolled with hypoglycemia -Chronic kidney disease stage III suspect diabetic nephropathy -Hypoalbuminemia likely from chronic kidney disease -Macrocytic anemia Plan: Patient checked his prescription coverage on good Rx. He found the Zyvox was only $52. Planning for discharge tomorrow depending on ID. At Benadryl at night to prevent itching.
[2020-01-22] MEDS ORDERED: diphenhydrAMINE 25 MG CAP PO SCH (22:00)
[2020-01-23 06:12] VITALS: BP 126/81; PULSE 89; RESP 12; TEMP 97.9
[2020-01-23 07:00] LABS: Glucose,Whole Blood 135 mg/dL (75-99)
[2020-01-23] MEDS: INSULIN PUMP BASAL RATES 1 EACH MISC MISCELLANE SCH (08:00)
[2020-01-23] MEDS: INSULIN PUMP MEAL BOLUS 1 UNIT MISC MISCELLANE SCH (08:00)
[2020-01-23] MEDS: LACTOBACILLUS ACIDOPH & BULGAR 1 EACH PACKET PO SCH (08:59)
[2020-01-23] MEDS: DULoxetine HCL 30 MG CAPSULE.DR PO SCH (08:59)
[2020-01-23] MEDS: DICYCLOMINE 20 MG TAB PO SCH (08:59)
[2020-01-23] MEDS: ENOXAPARIN 40 MG/0.4 ML SYRINGE SQ SCH (09:00)
[2020-01-23] MEDS: HYOSCYAMINE SULFATE 0.125 MG TAB PO SCH (09:01)
[2020-01-23] MEDS: MORPHINE SULFATE 4 MG/ML SYRINGE IVP PRN (09:09)
[2020-01-23] MEDS: DAPTOmycin 500 MG in SODIUM CHLORIDE 0.9% 50 ML IVPB SCH (10:30)
[2020-01-23 11:25] LABS: Glucose,Whole Blood 226 mg/dL (75-99)
[2020-01-23 12:32] LABS: T4/T8 Ratio (CD4:CD8) 0.9 (1.0-3.7)
--- NOTE | 2020-01-23 19:34 | PN ---
PROGRESS NOTE Patient is seen for followup for acute kidney injury on top of chronic kidney disease. He is scheduled for discharge today. The patient follows with paster operator and urologist out of [facility]. His creatinine was down to 1.2 yesterday on 01/22/2020. Patient denies any significant complaints. On examination today, blood pressure 126/81, heart rate 89 per minute. He is afebrile. Examination shows patient is euvolemic with no significant edema, bilateral lower extremities. Abscess on the forehead noted to have minimal bloody drainage. Labs show serum creatinine 1.2 mg/dL, sodium 139, potassium 4.2, magnesium 1.8. ASSESSMENT: 1. Acute kidney injury, currently improved. 2. Chronic kidney disease, stage 3, secondary to obstructive uropathy. Baseline creatinine about 1.5 per patient. He follows at [facility]. 3. History of desmoid tumor with history of nephrostomy tube, currently with a left ureteral stent. No evidence of hydronephrosis on current ultrasound. 4. Methicillin-resistant Staphylococcus aeruginosa wound on the forehead. 5. History of recurrent Clostridium difficile colitis. No current diarrhea noted. PLAN: Patient is advised to follow up as outpatient with his paster operator and urologist. Continue to avoid NSAIDs. MMODL / IJN: [id number] /
--- NOTE | 2020-01-24 07:09 | CDI ---
Documentation Clarification Form Date: 01/24/2020 06:58:00 AM From: Shayla Santoyo Phone: If you have a question about this query, please contact [employer] Resources Project Manager at [phone] between 8am and 5pm. Admit Date: 01/20/2020 02:43:00 PM Patient Name: Rafa Long Visit Number: [id number] Discharge Date: 01/23/2020 12:54:00 PM ATTENTION: The Clinical Documentation Specialists (CDI) and [facility] Coding Staff appreciate your assistance in clarifying documentation. Please respond to the clarification below the line at the bottom and electronically sign. The CDI & [facility] Coding staff will review the response and follow-up if needed. Please note: Queries are made part of the Legal Health Record. If you have any questions, please contact the author of this message via ITS. Dr. Trip Rodriguez Your patient has the documented diagnosis of recurrent facial abscess and boils especially along hairline. Patient also has DM type I, brittle. Please clarify if there is a link between the patients recurrent facial abscess/facial cellulitis and patient's DM type I. A relationship between diagnoses cannot be assumed unless documented as such by the attending physician. In order to capture the severity of condition; please document the relationship, if any, between facial abscess/ cellulitis and DM 1. History/Risk Factors: Recurrent abscesses and boils, cellulitis, folliculitis Clinical Indicators: MRSA, brittle DM 1 Treatment: Vancomycin changed over to Daptomycin Please clarify and document your clinical opinion if patient's recurrent facial abscess, boils, cellulitis is linked to DM type I. MRSA Abscess, boils, cellulitis linked to DM1 MRSA Abscess, boils and cellulitis not linked to DM 1 Other explanation of clinical findings (please specify) Unable to determine (no explanation for clinical findings) MRSA abscess wound linked to diabetes mellitus type 1 MTDD
--- NOTE | 2020-01-25 00:54 | P.DS ---
Providers Date of admission: 01/20/20 14:43 Expected date of discharge: 01/23/20 Attending physician: Trip Rodriguez Consults: 01/20/20 21:52 Consult Physician Routine Consulting Provider: Jacquelyn Dubon Consult Reason/Comments: CK D Do you want consulting provider notified?: Yes 01/21/20 20:31 Consult Physician Routine Consulting Provider: Rex Hair Consult Reason/Comments: I&D for forehead abscess Do you want consulting provider notified?: Yes Primary care physician: [facility] Course: Chief Complaint: Scalp and facial abscess History of presenting complaint: This is a pleasant 44-year-old patient of Dr. martin from [place]. Chronic stable medical conditions include type I diabetic. Patient has insulin pump. Rather brittle., Anxiety for which is on Cymbalta, J-pouch polyps for 2 takes Celebrex, abdominal cramping. Patient through the summer's been having episodes of facial abscess suspect in the facial head area including the maldonado. Had gone to see his family doctor. Several of these were I&D. Received antibiotics and local treatment which improved. Also a lot of having C. diff that was treated with oral vancomycin. Again patient started off with a lesion on the left cheek and the scalp area. Progress to get worse. It is draining. Denies any fever and chills. Appetite is fair. Dr. Hair manually drained into the bedside. Today-doing better. Told him to keep using warm compress. Told him not to touch a scratch. Patient given prescription for Zyvox. We will follow with ID, Dr. Salmeron as an outpatient. Cultures positive for MRSA. Consultation: Dr. Hair from general surgery Physical examination: VITAL SIGNS: 97.9, 99, 12, 04/15/1990, 96% room air GENERAL: sitting up, comfortable EYES: Pupils equal. Conjunctiva normal. HEENT: Patient has an area of large boil on the forehead at the hairline which is draining, 1 well-healing on the left face and the left jawline NECK: JVD not raised; masses not palpable. HEART: First and second heart sounds are normal; no edema. LUNGS: Respiratory rate normal; clear to auscultation. ABDOMEN: Soft, nontender, liver spleen not palpable, no masses palpable. PSYCH: Alert and oriented x3; mood and affect normal. INVESTIGATIONS, reviewed in the clinical context: Potassium 4.2 creatinine 1.2 Accu-Cheks 68, 59, 119 creatinine 1.3 White count 7.9 hemoglobin 12.1 platelets 349 potassium 4.7 creatinine 1.56 T suppressor cells 49, total T cells 105, natural killer cells 74 after CD4 helper 46 CD4 to CD8 ratio of 0.9 total CD19 plus P cells 62 Assessment: -Recurrent facial abscess boils, especially along the hairline, folliculitis with a prior history of MRSA. We will check patient's immunoglobulins for immunosuppression. Prelim cultures coming back showing MRSA. 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 doctor and infectious disease Disposition: Home Patient Condition at Discharge: Stable Plan - Discharge Summary Discharge Rx Participant: No New Discharge Prescriptions: New diphenhydrAMINE [Benadryl] 25 mg PO HS cap Linezolid [Zyvox] 600 mg PO Q12H #28 tab Continue L.acidoph,Paracasei, B.lactis [Probiotic] 1 cap PO DAILY Dicyclomine [Bentyl] 40 mg PO QID Celecoxib [CeleBREX] 100 mg PO BID Hyoscyamine Sulfate [Levsin] 0.25 mg PO QID DULoxetine HCL [Cymbalta] 30 mg PO BID Insulin Aspart (For Pump) [NovoLOG (For Pump)] 0.01 unit SQ-PUMP CONTINUOUS Discontinued Vancomycin 125 mg PO QID Discharge Medication List Celecoxib [CeleBREX] 100 mg PO BID 01/20/20 [History] DULoxetine HCL [Cymbalta] 30 mg PO BID 01/20/20 [History] Dicyclomine [Bentyl] 40 mg PO QID 01/20/20 [History] Hyoscyamine Sulfate [Levsin] 0.25 mg PO QID 01/20/20 [History] Insulin Aspart (For Pump) [NovoLOG (For Pump)] 0.01 unit SQ-PUMP CONTINUOUS 01/20/20 [History] L.acidoph,Paracasei, B.lactis [Probiotic] 1 cap PO DAILY 01/20/20 [History] Linezolid [Zyvox] 600 mg PO Q12H #28 tab 01/23/20 [Rx] diphenhydrAMINE [Benadryl] 25 mg PO HS cap 01/23/20 [Rx] Follow up Appointment(s)/Referral(s): Antolin Martin MD [Primary Care Provider] - 01/28/20 1:30 pm Duy Salmeron MD [STAFF PHYSICIAN] - 2 Weeks (The office will call you with your appointment time and date.) Patient Instructions/Handouts: Linezolid (By mouth), Cellulitis (DC), Type 1 Diabetes in Adults: New Diagnosis (DC), Abscess (GEN) Activity/Diet/Wound Care/Special Instructions: Consistent Carbohydrate diet. Maintain dressing to head wound while draining. Wash wound lightly with gentle soap and blot dry. Discharge Disposition: HOME SELF-CARE
== END 2020-01-23 12:54 | disposition home or self-care (01) | DRG 638 ==
LOC: EC 12:36 → 6NMEDSUR 14:43
PROVIDERS: ADMIT Hospitalist; ATTEND Hospitalist
PROC: 0HD1XZZ Extraction of Face Skin, External Approach (ICD-10-PCS; principal; 2020-01-22)
DX: E10.628 Type 1 diabetes mellitus with other skin complications (principal); L03.211 Cellulitis of face; L02.01 Cutaneous abscess of face; N17.9 Acute kidney failure, unspecified; L72.3 Sebaceous cyst; L73.9 Follicular disorder, unspecified; N13.9 Obstructive and reflux uropathy, unspecified; N18.30 Chronic kidney disease, stage 3 unspecified; F41.9 Anxiety disorder, unspecified; B95.62 Methicillin resistant Staphylococcus aureus infection as the cause of diseases classified elsewhere; Z96.0 Presence of urogenital implants; D53.9 Nutritional anemia, unspecified; E10.22 Type 1 diabetes mellitus with diabetic chronic kidney disease; E10.65 Type 1 diabetes mellitus with hyperglycemia; E88.09 Other disorders of plasma-protein metabolism, not elsewhere classified; F32.9 Major depressive disorder, single episode, unspecified; Z79.1 Long term (current) use of non-steroidal anti-inflammatories (NSAID); Z79.4 Long term (current) use of insulin; Z79.899 Other long term (current) drug therapy; Z86.14 Personal history of Methicillin resistant Staphylococcus aureus infection; Z90.49 Acquired absence of other specified parts of digestive tract; Z96.41 Presence of insulin pump (external) (internal); Z88.8 Allergy status to other drugs, medicaments and biological substances; R82.81 Pyuria; D41.22 Neoplasm of uncertain behavior of left ureter
CPT/HCPCS: 36415; 76770; 80048; 80053; 81001; 83036; 83605; 83735; 85025; 86355; 86357; 86359; 86360; 87040; 87070; 87077; 87086; 87186; 87205; 96361; 96365; 96366; 96367; 96375; 99284

== ENCOUNTER → 2020-06-24 | Outpatient (CLI) | payer BC ==
[2020-06-25 01:35] LABS: C Reactive Protein <0.4 mg/dL (0.0-0.8); Folate, Serum >24.0 ng/mL
[2020-06-25 12:24] LABS: Zinc, Serum 93 ug/dL (60-130)
[2020-06-25 14:21] LABS: Vitamin A 85 ug/dL (38-106); Vitamin E (Alpha Tocopherol) 1027 ug/dL (500-1800)
== END | disposition home or self-care (01) ==
LOC: LABWHC1 12:34
PROVIDERS: ATTEND Internal Medicine
DX: K91.2 Postsurgical malabsorption, not elsewhere classified (principal); R19.8 Other specified symptoms and signs involving the digestive system and abdomen; Z93.2 Ileostomy status; Z78.9 Other specified health status
CPT/HCPCS: 36415; 82180; 82306; 82525; 82746; 83921; 84238; 84255; 84425; 84446; 84590; 84630; 86140

== ENCOUNTER → 2020-07-07 | Outpatient (CLI) | payer BC | END | disposition home or self-care (01) | LOC: LABWHC1 16:31 | PROVIDERS: ATTEND Internal Medicine | DX: K91.2 Postsurgical malabsorption, not elsewhere classified (principal); R19.8 Other specified symptoms and signs involving the digestive system and abdomen; Z93.2 Ileostomy status; Z78.9 Other specified health status | CPT/HCPCS: 36415; 83785 ==

== ENCOUNTER → 2020-10-31 | Outpatient (CLI) | payer BC | END | disposition home or self-care (01) | LOC: LABWHC1 13:20 | PROVIDERS: ATTEND Urology | DX: N13.5 Crossing vessel and stricture of ureter without hydronephrosis (principal) | CPT/HCPCS: 87086 ==

== ENCOUNTER 2020-11-08 08:16 | Emergency (ER) | payer BC ==
[2020-11-08] MEDS ORDERED: KETOROLAC 15 MG/ML 1 ML VIAL IVP STA (08:23)
[2020-11-08] MEDS ORDERED: DIPH,PERTUS(ACELL)TETVAC-LF 0.5 ML VIAL IM ONE (08:24)
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
[2020-11-08 08:38] VITALS: TEMP 98.7
--- NOTE | 2020-11-08 09:08 | XR ---
EXAMINATION TYPE: XR pelvis AP view DATE OF EXAM: 11/08/2020 CLINICAL HISTORY: Trauma TECHNIQUE: A single AP view of the pelvis is obtained. COMPARISON: None. FINDINGS: There is no acute fracture/dislocation evident in the pelvis. The hip and sacroiliac join ts appear symmetric and unremarkable. The overlying soft tissue appears unremarkable. Left ureteral stent distal tip looped over the bladder. Clips over the left midabdomen. There is linear hyperdensit y over the left iliac crest, indeterminate. IMPRESSION: There is no acute fracture or dislocation in the pelvis.
--- NOTE | 2020-11-08 09:10 | XR ---
EXAMINATION TYPE: XR chest 2V DATE OF EXAM: 11/08/2020 COMPARISON: NONE HISTORY: Difficulty breathing TECHNIQUE: Frontal and lateral views of the chest are obtained. FINDINGS: There is no focal air space opacity, pleural effusion, or pneumothorax seen. The cardiac silhouette size is within normal limits. The osseous structures are intact. Right upper extremity P ICC with the catheter tip at the cavoatrial junction. IMPRESSION: No acute cardiopulmonary process.
--- NOTE | 2020-11-08 09:13 | XR ---
EXAMINATION TYPE: XR wrist complete RT DATE OF EXAM: 11/08/2020 CLINICAL HISTORY: Trauma TECHNIQUE: Frontal, lateral and oblique images of the right wrist are obtained. COMPARISON: None FINDINGS: There is no acute fracture/dislocation evident in the right wrist. The joint spaces in th e right wrist appear within normal limits. The overlying soft tissue appears unremarkable. Cortical irregularity at the volar aspect of the distal radius is favored to represent an old fracture. Vascul ar calcifications. IMPRESSION: There is no acute fracture or dislocation in the right wrist.
--- NOTE | 2020-11-08 09:14 | XR ---
EXAMINATION TYPE: XR tibia fibula LT DATE OF EXAM: 11/08/2020 CLINICAL HISTORY: Trauma TECHNIQUE: Two views of the left leg are obtained. COMPARISON: None. FINDINGS: There is no acute fracture or dislocation seen in the left tibia or fibula. The visualize d left knee and ankle joints appear within normal limits. The overlying soft tissue appears unremark able. IMPRESSION: There is no acute fracture or dislocation seen in the left tibia or fibula.
--- NOTE | 2020-11-08 11:03 | XR ---
EXAMINATION TYPE: XR knee complete RT DATE OF EXAM: 11/08/2020 CLINICAL HISTORY: Trauma TECHNIQUE: Three views of the right knee are obtained. COMPARISON: None. FINDINGS: Prepatellar soft tissue swelling. There is no acute fracture/dislocation evident in right knee. The tri-compartment joint spaces appear within normal limits. IMPRESSION: The patellar soft tissue swelling without acute fracture or dislocation of the right knee .
[2020-11-08 12:28] VITALS: BP 137/70; PULSE 77; RESP 18
== END 2020-11-08 12:07 | disposition home or self-care (01) ==
LOC: EC 08:16
DX: S82.401A Unspecified fracture of shaft of right fibula, initial encounter for closed fracture (principal); S52.501A Unspecified fracture of the lower end of right radius, initial encounter for closed fracture; S60.511A Abrasion of right hand, initial encounter; E10.9 Type 1 diabetes mellitus without complications; F32.9 Major depressive disorder, single episode, unspecified; F41.9 Anxiety disorder, unspecified; Z79.899 Other long term (current) drug therapy; V48.5XXA Car driver injured in noncollision transport accident in traffic accident, initial encounter; Y92.410 Unspecified street and highway as the place of occurrence of the external cause
CPT/HCPCS: 93005; 72170; 73110; 73590; 73562; 71046; 90715; 29125; 96374; 90471; 99284; J1885